=== PATIENT | female | born 1965 | race Caucasian/White ===

== ENCOUNTER 2022-04-27 10:17 | Emergency (ER) | payer MEDICAID ==
[~2022-04-27] VITALS: Ht 154.9 cm; Wt 54.5 kg
[2022-04-27 10:18] VITALS: BP 129/77
== END 2022-04-27 11:00 | disposition left against medical advice (07) ==
LOC: M ED 10:17
DX: Z53.21 Procedure and treatment not carried out due to patient leaving prior to being seen by health care provider (principal)